=== PATIENT | male | born 1985 | race Caucasian/White ===

== ENCOUNTER 2024-11-29 04:44 | Emergency (ER) | payer SELFPAY ==
[2024-11-29] MEDS ORDERED: Ketorolac 30 MG/ML SDV IM ONE (05:08)
[2024-11-29 06:06] LABS: APPEARANCE,URINE CLEAR (Clear); GLUCOSE,URINE NEGATIVE (Negative); OCCULT BLOOD,URINE NEGATIVE (Negative)
[2024-11-29] MEDS ORDERED: methylPREDNISolone Sodium Succinate 125 MG/2 ML SDV IM ONE (06:09)
[2024-11-29 07:32] LABS: C. TRACHOMATIS BY PCR NOT DETECTED; N. GONORRHOEAE BY PCR NOT DETECTED
== END 2024-11-29 07:09 | disposition home or self-care (01) ==
LOC: JD.ED 04:44
DX: N50.811 Right testicular pain (principal); N50.812 Left testicular pain
CPT/HCPCS: 76870; 76870-26; 81003; 87491; 87591; 93975; 99284